=== PATIENT | male | born 1940 | race Caucasian/White ===

== ENCOUNTER 2017-02-04 12:47 | Emergency (ER) | payer OTHER ==
[2017-02-04 13:00] VITALS: BP 169/94
--- NOTE | 2017-02-04 13:10 | EDM.PDOC ---
ED HPI GENERAL MEDICAL PROBLEM - General Chief Complaint: Cardiovascular Problem Stated Complaint: LOW HEART RATE Time Seen by Provider: 02/04/17 12:55 Source of Information: Reports: Patient, RN Notes Reviewed History Limitations: Reports: No Limitations - History of Present Illness INITIAL COMMENTS - FREE TEXT/NARRATIVE: The patient states that he lives in [place], [place], but that he is traveling westward to go fishing at numerous sites. He was at the [facility] last week to have some bloodwork checked, and as a matter of routine, his vitals were checked. The patient was asymptomatic, but he was found to be bradycardic in the 40s. His blood work was normal with the exception of hypokalemia. He was given IV fluid and discharged. He states that he was working out in the exercise room at his hotel this morning. When he got onto the stationary bicycle, the electronic monitor read his heart rate at 44. He states that he felt lightheaded and nauseated, but he is not sure if he felt that way prior to seeing his heart rate being low, or afterwards. 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 Here in the emergency department, the patient's heart rate is 73, and he feels perfectly normal. - Related Data Allergies Allergy/AdvReac Type Severity Reaction Status Date / Time No Known Allergies Allergy Verified 02/04/17 13:01 Home Meds: Home Meds Hydrochlorothiazide 25 mg PO DAILY 02/04/17 [History] Past Medical History Cardiovascular History: Reports: Hypertension Psychiatric History: Reports: Anxiety - Past Surgical History GI Surgical History: Reports: Hernia, Inguinal (left) Social & Family History - Tobacco Use Smoking Status *Q: Former Smoker - Alcohol Use Alcohol Use History: Yes Alcohol Use Frequency: Socially - Recreational Drug Use Recreational Drug Use: No - Living Situation & Occupation Living situation: Reports: , Other (with a friend) 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) ED ROS GENERAL - Review of Systems Review Of Systems: See Below Constitutional: Reports: No Symptoms HEENT: Reports: No Symptoms Respiratory: Reports: No Symptoms Cardiovascular: Reports: No Symptoms Endocrine: Reports: No Symptoms GI/Abdominal: Reports: No Symptoms : Reports: No Symptoms Musculoskeletal: Reports: No Symptoms Skin: Reports: No Symptoms Neurological: Reports: No Symptoms Psychiatric: Reports: No Symptoms Hematologic/Lymphatic: Reports: No Symptoms Immunologic: Reports: No Symptoms ED EXAM, GENERAL - Physical Exam Exam: See Below Exam Limited By: No Limitations General Appearance: Alert, WD/WN, No Apparent Distress Eye Exam: Bilateral Eye: Normal Inspection Ears: Normal External Exam, Hearing Grossly Normal Nose: Normal Inspection, No Blood Throat/Mouth: Normal Inspection, Normal Lips, Normal Voice, No Airway Compromise Head: Atraumatic, Normocephalic Neck: Normal Inspection, Full Range of Motion Respiratory/Chest: No Respiratory Distress, Lungs Clear, Normal Breath Sounds, No Accessory Muscle Use Cardiovascular: Normal Peripheral Pulses, Regular Rate, Rhythm, No Gallop, No JVD, No Murmur, No Rub Peripheral Pulses: 4+: Radial (L), Radial (R) GI/Abdominal: Normal Bowel Sounds, Soft, Non-Tender, No Organomegaly, No Distention, No Abnormal Bruit, No Mass (Male) Exam: Deferred Rectal (Males) Exam: Deferred Back Exam: Normal Inspection, Full Range of Motion, NT Extremities: Normal Inspection, Normal Range of Motion, No Pedal Edema, Normal Capillary Refill Neurological: Alert, Oriented, Normal Cognition, No Motor/Sensory Deficits Psychiatric: Normal Affect Skin Exam: Warm, Dry, Intact, Normal Color, No Rash Lymphatic: No Adenopathy EKG INTERPRETATION EKG Date: 02/04/17 Time: 13:03 Rhythm: NSR Rate (Beats/Min): 68 Ranger: Normal P-Wave: Present QRS: Normal ST-T: Normal QT: Normal Comparison: NA - No Prior EKG Course - Vital Signs Last Recorded V/S: Last Vital Signs Temp 36.9 C 02/04/17 12:57 Pulse 73 02/04/17 12:57 Resp 18 02/04/17 12:57 BP 169/94 H 02/04/17 12:57 Pulse Ox 100 02/04/17 12:57 - Orders/Labs/Meds Orders: Active Orders 24 hr Category Date Time Status EKG 12 Lead [EKG Documentation Completion] [RC] STAT Care 02/04/17 13:03 Active - Re-Assessments/Exams Free Text/Narrative Re-Assessment/Exam: 02/04/17 13:32 The patient's ECG here in the ED is completely normal, with a heart rate of 68. He is not taking any medications which can cause bradycardia. It is possible that his bradycardia was a vagal reaction in response to not feeling well, although it is also possible that he has a primary bradycardia issue, such as sick sinus syndrome. Before receiving a pacemaker, he would need to have documented bradycardia, to the point of being symptomatic, which will require a Holter monitor. The patient is traveling from his home in [place], [place], and will be leaving here to continue his trip. He does not expect to return to [place] until the end of February. I am recommending that he follow-up at a [place], where he potentially could be fitted for a Holter monitor, which potentially could be dropped off at a different [place] along his trip route. I had to recommend that he not drive, as he could become symptomatic at any time. Departure - Departure Time of Disposition: 13:34 Disposition: Home, Self-Care 01 Condition: Good Clinical Impression: Bradycardia Instructions: Bradycardia Referrals: Jaylene Becker DO [Ordering Only Provider] - Forms: ED Department Discharge Additional Instructions: You were seen in the emergency room after your heart rate was low on a stationary bicycle today. Workup in the ER included an ECG, which was normal. You may have a condition called sick sinus syndrome. In order to diagnosis, he should be fitted for a Holter monitor. [facility]. Consider purchasing a finger pulse oximeter at a pharmacy. This can tell you your heart rate within a few seconds of applying it. We recommend that you not drive until this problem has been figured out and treated. If any other problems, please do not hesitate to return to the ER. - My Orders Last 24 Hours: My Active Orders 02/04/17 13:03 EKG 12 Lead [EKG Documentation Completion] [RC] STAT - Assessment/Plan Last 24 Hours: My Active Orders 02/04/17 13:03 EKG 12 Lead [EKG Documentation Completion] [RC] STAT
== END 2017-02-04 13:48 | disposition home or self-care (01) ==
LOC: JD.ED 12:47
DX: R00.1 Bradycardia, unspecified (principal); I10 Essential (primary) hypertension; Z87.891 Personal history of nicotine dependence
CPT/HCPCS: 93005; 99284; 99284-25